=== PATIENT | male | born 1990 | race Caucasian/White ===

== ENCOUNTER 2017-09-05 12:56 | Emergency (ER) | payer SELFPAY ==
[2017-09-05 13:18] LABS: BASOPHIL COUNT 0.1 K/uL (0-0.1); EOSINOPHIL (%) 0.3 % (0-5); HEMATOCRIT 47.5 % (38.0-50.0); IMMATURE GRANULOCYTE (%) 0.8 % (0.0-0.7); IMMATURE GRANULOCYTE COUNT 0.1 K/uL; INSTRUMENT ABS NEUTROPHIL CT 12.6 K/uL; LYMPHOCYTE COUNT 1.9 K/uL (1.0-2.8); MCHC 34.3 G/DL (30.0-36.0); MCV 84.5 FL (86-99); MEAN PLAT.VOLUME 8.4 uM^3 (9.0-12.4); MONOCYTE (%) 4.3 % (3-12); MONOCYTE COUNT 0.7 K/uL (0-0.8); NEUTROPHIL COUNT 12.6 K/uL (1.8-6.4); PLATELET COUNT 256 K/uL (156-360); RBC DIS.WIDTH-CV 12.1 % (11.8-14.6); RBC DIS.WIDTH-SD 37.1 % (39-53); RED BLOOD COUNT 5.62 M/uL (4.00-5.50); WHITE BLOOD COUNT 15.4 K/uL (4.1-10.2)
[2017-09-05 13:26] LABS: AMYLASE 49 IU/L (1-118); CHLORIDE 101 mEq/L (99-109); SODIUM 139 mEq/L (136-147)
[2017-09-05 13:28] LABS: GLUCOSE 130 mg/dL (70-99)
[2017-09-05 13:29] LABS: ANION GAP 13 MEQ/L (2-14)
[2017-09-05 13:31] LABS: SERUM ETHYL ALCOHOL < 10 mg/dL
[2017-09-05 13:33] LABS: UREA NITROGEN (BUN) 15 mg/dL (9-23)
[2017-09-05 13:35] LABS: LIPASE 23 U/L (1.0-51.0)
[2017-09-05 13:36] LABS: GFR ESTIMATE (CALCULATED) > 59 mL/min/ (58.99-99999)
== END 2017-09-05 17:38 | disposition short-term general hospital (02) ==
LOC: TRA 12:56
PROVIDERS: Internal Medicine
DX: S51.011A Laceration without foreign body of right elbow, initial encounter (principal); S22.029A Unspecified fracture of second thoracic vertebra, initial encounter for closed fracture; S54.01XA Injury of ulnar nerve at forearm level, right arm, initial encounter; W23.0XXA Caught, crushed, jammed, or pinched between moving objects, initial encounter; Y99.0 Civilian activity done for income or pay; M25.551 Pain in right hip; M25.572 Pain in left ankle and joints of left foot; G89.29 Other chronic pain; Z72.0 Tobacco use
CPT/HCPCS: 70450; 71260; 72125; 72129; 72132; 73060; 73080; 73201; 73502; 73610; 74177; 80048; 81003; 82150; 83690; 85025; 86850; 86900; 86901; 99281; 99285; G0480; J0690; J2405; J3010